=== PATIENT | female | born 1940 | race Hispanic/Latino ===

== ENCOUNTER → 2024-07-15 | Outpatient (CLI) | payer OTHER ==
--- NOTE | 2024-07-15 16:29 | HMCIMG ---
HIP UNILAT 2-3VW RIGHT HISTORY: Right hip pain COMPARISON: None TECHNIQUE: 2 images of right hip were obtained. FINDINGS: There is no acute displaced fracture or dislocation. Bilateral hip joint space narrowings are seen. Degenerative changes are seen. IMPRESSION: 1. Findings as described above.
== END | disposition home or self-care (01) ==
LOC: OIH 15:44
PROVIDERS: ATTEND Internal Medicine
DX: S31.809A Unspecified open wound of unspecified buttock, initial encounter (principal); M16.11 Unilateral primary osteoarthritis, right hip; X58.XXXA Exposure to other specified factors, initial encounter; Y93.89 Activity, other specified; Y92.89 Other specified places as the place of occurrence of the external cause; Y99.8 Other external cause status
CPT/HCPCS: 73502